=== PATIENT | female | born 1945 | race Caucasian/White ===

== ENCOUNTER 2017-12-18 13:48 | Outpatient (CLI) | payer MEDICARE, SELFPAY ==
--- NOTE | 2017-12-18 13:50 | DI.RAD.S_ITS ---
PROCEDURE: PAIN SI JOINT INJECTION INDICATIONS: 71 year-old female with right sacroiliac joint dysfunction. FINDINGS: Fluoroscopic spot filming was performed to verify placement of spinal needles at the right sacroiliac joint, as labeled on the films. Appropriate location(s) of the needle tip(s) was confirmed by injection of iodinated contrast. IMPRESSION: Fluoroscopic guidance for right sacroiliac joint steroid injection. Dictated by: Trell Romero M.D. on 12/18/2017 at 15:47 Approved by: Trell Romero M.D. on 12/18/2017 at 15:48
[2017-12-18 14:03] VITALS: BP 168/87; PULSE 63; RESP 16; TEMP 36.1; O2SAT 99
[2017-12-18 14:42] VITALS: BP 181/63; PULSE 75; RESP 18; O2SAT 99
[2017-12-18 14:43] VITALS: BP 189/72; RESP 18; O2SAT 99
[2017-12-18] MEDS: BUPIVACAINE 0.5% (PF) 30 ML VIAL INJ (14:45)
[2017-12-18] MEDS: BETAMETHASONE 30 MG/5 ML MDV 12 MG INJ (14:45)
[2017-12-18] MEDS: IOPAMIDOL 15 ML VIAL 3 ML INJ (14:45)
[2017-12-18 14:51] VITALS: BP 172/89; PULSE 65; RESP 18; O2SAT 100
[2017-12-18 14:55] VITALS: BP 161/96; PULSE 62; RESP 18; O2SAT 99
[2017-12-18 15:09] VITALS: BP 175/87; PULSE 82; RESP 18; O2SAT 96
--- NOTE | 2017-12-18 15:41 | P.PCN_ITS ---
Procedures Date/Time Date of procedure: 12/18/17 Time of procedure: 15:40 General Procedure description: PREOP Dx: Sacroiliac joint pain/DJD POST OP DX: Sacroliac Joint Pain/DJD Procedures: Fluoroscopic guided contrast controlled sacroiliac joint injection Physician: Sy Gibson D.O. Indications: Briseida is referred by for treatment of sacroiliac joint DJD Description of procedure Fluoroscopic guided, contrast controlled sacroiliac joint injection Following denial of allergies and review of potential side effects and complications, including, but not necessarily limited to, infection, allergic reaction, local tissue breakdown, temporary as well as permanent nerve injury, paralysis, stroke and possible , the patient indicated that they understood and agreed to proceed. An informed consent was signed by the patient , witnessed by a nurse, and placed in the patient's chart. Additionally, other treatment options including modalities, medications, and physical therapy were reviewed with the patient. In the prone position following sterile prep and drape of the pelvic region, the hyper lucency on in the inferior aspect of the sacroiliac joint was identified fluoroscopically the skin was anesthetized be a 25 gauge 1 eventual with approximately 2 cc of 1% lidocaine solution. At this point, a 22 gauge 3 in spinal needle was atraumatically introduced and advanced under fluoroscopic guidance into the inferior aspect of the sacroiliac joint. Following negative aspiration, approximately 0.3 cc of Isovue-300 was injected confirming intra- articular placement without vascular uptake. Radiographic data, including multiple fluoroscopic views of the pelvis, reveals a spinal needle in the sacroiliac joint hyper loosen zone. Subsequent view show flow contrast tear superiorly and inferiorly within the joint capsule without vascular intrathecal uptake. At this point a total of 1 cc or 0 8 of 0.5% Marcaine was combined with 1 cc of 6 mg of betamethasone was injected without incident. The patient was then transferred to the recovery area with a bur observed for an appropriate time after the injection. The patient reverted a vas score of 7 prior to the procedure and postprocedure vas of 1. Total fluoroscopy time: 22.7 sec Total conscious sedation time: 24 min Postop instructions The patient was provided with a pain like to continue to record the patient's response to the target specific procedure prior to the patient's follow-up visit with the referring physician. Additionally, specific post injection care instructions and a contact number to our office were provided if concerns arise regarding the possible complications associated with procedure are suspected. Sy Gibson D.O. Complications: none
== END 2017-12-18 15:31 | disposition home or self-care (01) ==
LOC: RAD 13:49
PROVIDERS: Family Provider Family Medicine; PCP Family Medicine; Visit Provider Physical Medicine & Rehabilitation
DX: M53.3 Sacrococcygeal disorders, not elsewhere classified (principal); M47.898 Other spondylosis, sacral and sacrococcygeal region
CPT/HCPCS: 27096; J0702; J2250